=== PATIENT | male | born 1995 | race Asian ===

== ENCOUNTER 2023-11-05 22:39 | Emergency (ER) | payer SELFPAY ==
[~2023-11-05] VITALS: Ht 185.4 cm; Wt 106.0 kg
[2023-11-05 23:25] VITALS: TEMP 98.7; O2SAT 99
[2023-11-06 01:40] VITALS: BP 121/78; PULSE 82; RESP 18
== END 2023-11-06 01:40 | disposition home or self-care (01) ==
LOC: ER 22:39
DX: S53.492A Other sprain of left elbow, initial encounter (principal); X58.XXXA Exposure to other specified factors, initial encounter; Y93.89 Activity, other specified; Y92.89 Other specified places as the place of occurrence of the external cause; Y99.8 Other external cause status
CPT/HCPCS: 73080; 99283; A4565